=== PATIENT | male | born 1995 | race Caucasian/White ===

== ENCOUNTER 2022-08-07 18:18 | Emergency (ER) | payer OTHER ==
--- NOTE | 2022-08-07 18:45 | NUR ---
27 y/o morbidly obese male ambulatory to ED with pmhx PTSD Bipolar disorder, treatted with depakote minipress olanzpine states he has had a recent mediation change and has not adjusted well with it denies SI states he is worried he is going to loose his job if he does not get help. pt was seen at [facility] in [facility] last night was to be admitted to [facility] there or out patient with [facility] but pt had a mbad expeirnce there and requested to go else where. pt awake, alert good eye contact, staes he is hungry. snacks offered, Dr. Quinones notified, orders recieved.
--- NOTE | 2022-08-07 19:02 | PCM.EKG ---
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
[2022-08-07 19:03] LABS: BASOPHIL % 0.3 % (0.0-0.2); EOSINOPHIL # 0.4 10^3/uL (0.0-0.2); EOSINOPHIL % 4.5 % (0.0-5.0); LYMPHOCYTES # 2.24 10^3/uL1 (1.0-4.8); LYMPHOCYTES % 28.9 % (24.0-44.0); MEAN CORP HGB 30.5 pg (26-34); MONOCYTES # 0.8 10^3/uL (0.3-0.8); MONOCYTES % 10.5 % (5.0-12.0); NEUTROPHIL # 4.3 10^3/uL (1.8-7.7); NEUTROPHILS % 55.7 % (41.0-85.0); PLATELET COUNT 215 10^3/uL (150-400); RED CELL DISTRIBUTION WIDTH 12.9 % (11.5-14.5)
[2022-08-07 19:05] LABS: BILIRUBIN,URINE NEGATIVE (NEGATIVE); UROBILINOGEN,URINE 0.2 E.U./dL (0.2)
[2022-08-07 19:06] VITALS: BP 128/80
[2022-08-07 19:30] LABS: CARBON DIOXIDE 27.2 mmol/L (20.0-32); GLUCOSE 98 mg/dL (70-110)
--- NOTE | 2022-08-07 21:18 | ER.PDOC ---
General Chief Complaint: Requesting Medical Care Stated Complaint: MEDICAL CLEARANCE Time seen by MD: 18:30 Source: patient Exam Limitations: no limitations History of Present Illness Initial Comments Patient is a 27-year-old male with past medical history of bipolar who had recent medication changes and comes in with changes in his mental status is worried that he is going to lose his job. Dr. Oro called our U and he is already excepted once he is medically cleared. Patient states that he has just had some oddities very difficult for him to complaints and has been made worse with the medication changes nothing makes it better he is worried he is going to lose his job denies any real suicidal homicidal ideation but just says that he is having a hard time function may or may not have some audiovisual hallucinations he is not sure. He just gives very vague complaints however Dr. Oro is already got him accepted upstairs once he is medically cleared we will place his labs. Past Medical History Medical History: no pertinent history, other Surgical History: no surgical history Family History Significant Family History: no pertinent family hx Social History Smoking: non-smoker Alcohol Use: none Drug Use: marijuana Reviewed Nursing Reviewed: Vital Signs, Abn. Noted, Nursing Assessment Review of Systems Constitutional: denies no symptoms reported, denies see HPI, denies chills, denies diaphoresis, denies fever, denies malaise, denies weakness, denies other EENTM: denies no symptoms reported, denies see HPI, denies eye pain, denies blurred vision, denies tearing, denies double vision, denies ear pain, denies ear discharge, denies nose pain, denies nose congestion, denies throat pain, denies throat swelling, denies mouth pain, denies mouth swelling, denies other Respiratory: denies no symptoms reported, denies see HPI, denies cough, denies orthopnea, denies shortness of breath, denies stridor, denies wheezing, denies other Cardiovascular: denies no symptoms reported, denies see HPI, denies chest pain, denies edema, denies palpitations, denies syncope, denies other Gastrointestinal: denies no symptoms reported, denies see HPI, denies abdominal pain, denies constipation, denies diarrhea, denies nausea, denies vomiting, denies other Genitourinary: denies no symptoms reported, denies see HPI, denies discharge, denies dysuria, denies frequency, denies hematuria, denies pain, denies other Musculoskeletal: denies no symptoms reported, denies see HPI, denies back pain, denies gout, denies joint pain, denies joint swelling, denies muscle pain, denies muscle stiffness, denies neck pain, denies other Skin: denies no symptoms reported, denies see HPI, denies change in color, denies change in hair/nails, denies dryness, denies lesions, denies lumps, denies rash, denies other Psychiatric/Neurological: anxiety, depressed, emotional problems Physical Exam General Appearance: Anxious EENT: No nystagmus, PERRLA, EOM's intact, NML ENT inspection, Pharynx nml, NML gag reflex Neck: Non-Tender, Full Range of Motion, Supple, Normal Inspection Respiratory: chest non-tender, lungs clear, normal breath sounds, no respiratory distress, no accessory muscle use Cardiovascular: Normal Peripheral Pulses, Regular Rate, Rhythm, No Edema, No Gallop, No JVD, No Murmur Gastrointestinal: Normal Bowel Sounds, No Organomegaly, No Pulsatile Mass, Non Tender, Soft Extremities: Non-Tender, Normal Range of Motion, No Evidence of Trauma, No Edema Neurological/Psychiatric: Alert, Normal Mood/Affect, Calm, 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 NML as Tested, Oriented x 3 Appearance/Memory/Insight: Appropriate Insight Behavior/Eye Contact/Speech: Avoids Eye Contact Thoughts/Hallucinations: No Apparent Hallucination Results/Orders Results/Orders Orders - JOHN BRAXTON MD Cbc With Auto Diff (08/07/22 18:39) Comprehensive Metabolic Panel (08/07/22 18:39) Urinalysis (08/07/22 18:39) Thyroid Stimulating Horm(Ml) (08/07/22 18:39) Drug Scrn Med W Confirmation (08/07/22 18:39) Vitamin D Total 25 Hydroxy (08/07/22 18:39) RPR (08/07/22 18:39) Hemoglobin A1c(Ml) (08/07/22 18:39) Lipid Panel(Ml) (08/07/22 18:39) Creatine Kinase (08/07/22 18:39) Creatine Kinase Mb (08/07/22 18:39) Alcohol(Ml) (08/07/22 18:39) Acetaminophen(Ml) (08/07/22 18:39) Salicylate(Ml) (08/07/22 18:39) Ekg-Routine (08/07/22 18:39) Troponin I High Sensitivity (08/07/22 18:39) Covid19 Antigen Patsy Luisa (08/07/22 20:15) Vital Signs Date Time Temp Pulse Resp B/P (MAP) Pulse Ox O2 Delivery O2 Flow Rate FiO2 08/07/22 19:06 98.6 87 20 128/80 (96) 96 Room Air* 0 21 08/07/22 19:06 98.6 87 20 08/07/22 19:06 98.6 87 20 96 Laboratory Tests Test 08/07/22 00:00 08/07/22 18:51 SARS-CoV-2 Antigen (Rapid) NEGATIVE (NEGATIVE) White Blood Count 7.7 10^3/uL (4.5-11.0) Red Blood Count 4.82 10^6/uL (4.50-5.90) Hemoglobin 14.7 g/dL (13.9-16.3) Hematocrit 44.4 % (37.0-53.0) Mean Corpuscular Volume 92.1 fL (78-100) Mean Corpuscular Hemoglobin 30.5 pg (26-34) Mean Corpuscular Hemoglobin Concent 33.1 g/dL (33-36.5) Red Cell Distribution Width 12.9 % (11.5-14.5) Platelet Count 215 10^3/uL (150-400) Mean Platelet Volume 9.1 fL (7.8-11.0) Neutrophils (%) (Auto) 55.7 % (41.0-85.0) Lymphocytes (%) (Auto) 28.9 % (24.0-44.0) Monocytes (%) (Auto) 10.5 % (5.0-12.0) Neutrophils # (Auto) 4.3 10^3/uL (1.8-7.7) Lymphocytes # (Auto) 2.24 10^3/uL1 (1.0-4.8) Monocytes # (Auto) 0.8 10^3/uL (0.3-0.8) Absolute Immature Granulocyte (auto 0.01 10^3 u/L (0-2) Absolute Eosinophils (auto) 0.4 10^3/uL (0.0-0.2) H Immature Granulocytes % 0.10 % (0.00-0.50) Eosinophils % 4.5 % (0.0-5.0) Basophils % 0.3 % (0.0-0.2) H Basophils # 0.0 10^3/uL (0.0-0.1) Urine Collection Type UNKNOWN Urine Color YELLOW Urine Appearance CLEAR Urine Bilirubin NEGATIVE (NEGATIVE) Urine Ketones NEGATIVE (NEGATIVE) Urine Specific [place] >=1.030 (1.005-1.030) Urine pH 6.0 (4.5-8.0) Urine Protein NEGATIVE (NEGATIVE) Urine Urobilinogen 0.2 E.U./dL (0.2) Urine Nitrate NEGATIVE (NEGATIVE) Urine Leukocyte Esterase NEGATIVE (NEGATIVE) Urine Glucose (Auto)(UA) NEGATIVE (NEGATIVE) Urine Blood NEGATIVE (NEGATIVE) Sodium Level 144 mmol/L (132-145) Potassium Level 3.9 mmol/L (3.6-5.2) Chloride Level 105.0 mmol/L (96-109) Carbon Dioxide Level 27.2 mmol/L (20.0-32) Anion Gap 15.7 Blood Urea Nitrogen 17 mg/dL (7-18) Creatinine 1.23 mg/dL (0.59-1.40) Estimated GFR () 85.4 (>/=60) Est GFR (CKD-EPI)(Non-Afr Mongolian) 70.6 (>/=60) BUN/Creatinine Ratio 13.0 Glucose Level 98 mg/dL (70-110) Hemoglobin A1c 5.7 % (0-5.7) Calcium Level 8.9 mg/dL (8.4-10.5) Total Bilirubin 0.2 mg/dL (0.2-1.0) Aspartate Amino Transferase (AST) 22 U/L (0-35) Alanine Aminotransferase (ALT) 63 U/L (12-78) Alkaline Phosphatase 72 U/L (50-136) Total Creatine Kinase 217 U/L (39-308) Creatine Kinase MB 1.6 ng/mL (0.5-3.6) Troponin I High Sensitivity 6 ng/L (0-75) Total Protein 7.5 g/dL (6.4-8.2) Albumin 3.6 g/dL (3.4-5.0) Globulin 3.9 Albumin/Globulin Ratio 0.923 Triglycerides Level 283 mg/dL (20-150) H Cholesterol Level 215 mg/dL (120-240) LDL Cholesterol, Calculated 126.4 VLDL Cholesterol, Calculated 56.6 HDL Cholesterol 32 mg/dL (32-96) Cholesterol Ratio (LDL/HDL) 3.9 Cholesterol/HDL Ratio [id number] Vitamin D 25-Hydroxy Pending Thyroid Stimulating Hormone (TSH) 2.297 mIU/mL (0.358-3.740) Salicylates Level < 2.8 mg/dL (2.8-20.0) L Urine Opiates Screen NEGATIVE (c/o300ng/mL) Urine Methadone Screen NEGATIVE (c/o300ng/mL) Acetaminophen Level < 2 ug/mL (10-30) L Urine Barbiturates Screen NEGATIVE (c/o200ng/mL) Urine Phencyclidine Screen NEGATIVE (c/o 25ng/mL) Ur Amphetamine/Methamphetamine NEGATIVE (pv8543zr/mL) Urine MDMA Screen (Ecstasy) NEGATIVE (c/o300ng/mL) Urine Benzodiazepines Screen NEGATIVE (c/o200ng/mL) Urine Cocaine Metabolite Screen NEGATIVE (c/o300ng/mL) Ur Tetrahydrocannabinol (THC) Scrn PRESUMPTIVE POSITIVE (c/o Serum Alcohol < 3 mg/dL (0-50) Progress Progress Patient here for medical clearance already accepted at the psych unit once he is medically cleared we will place those labs and continue to monitor. 2115reassessment patient is now medically cleared and stable for psychiatric placement and transportation. Dr. Longoria admitting ER DEPART Departure Time of Disposition: 21:17 Disposition: ADMITTED INPATIENT (to our \U) Impression: Primary Impression: Bipolar 1 disorder Condition: Stable Referrals: TREVON BEATTY MD (PCP) PRIMARY CARE PROVIDER Duration or Time Spent with Pa: JOHN PINO MD Aug 07, 2022 21:18
--- NOTE | 2022-08-07 21:30 | NUR ---
[facility] NURSE IN ER 8 WITH PATIENT CONDUCTING INTERVIEW AT THIS TIME
[2022-08-07 22:10] VITALS: BP 132/78
--- NOTE | 2022-08-07 22:14 | NUR ---
pt discharged to other facility [facility] room 210 for DX MDD recurrent sever pt accompanied by Dyan RODRIGUEZ U.
[2022-08-08] MEDS ORDERED: PRAZ2CAP PO (03:21)
[2022-08-08] MEDS ORDERED: FLUO10CA13 PO (03:21)
[2022-08-08] MEDS ORDERED: DIVA500T2 PO ×2 (03:21)
[2022-08-08] MEDS ORDERED: LISI10TA20 PO (18:58)
== END 2022-08-07 22:14 | disposition admitted as inpatient to this hospital (09) ==
LOC: ER 18:18
DX: F31.9 Bipolar disorder, unspecified (principal); Z20.822 Contact with and (suspected) exposure to COVID-19; F12.90 Cannabis use, unspecified, uncomplicated
CPT/HCPCS: 36415; 80053; 80061; 80299; 80307; 81003; 82077; 82550; 82553; 83036; 84443; 84484; 85025; 86592; 87426; 93005; 99285